=== PATIENT | male | born 1980 | race Caucasian/White ===

== ENCOUNTER 2024-01-22 09:27 | Emergency (ER) | payer OTHER, SELFPAY ==
[2024-01-22 09:29] VITALS: BP 162/93
--- NOTE | 2024-01-22 09:52 | ED.GENMED ---
History of Present Illness
General
Chief Complaint: Chest Pain
Source: patient
Exam Limitations: none
Time Seen by Provider: 01/22/24 09:32
Nursing documentation reviewed up to this point in time: agreed with
History of Present Illness
History of Present Illness:
43 y/o M
h/o HTN, HLD
low testosterone on supplement
here with chest pain that woke him from sleep at 230 am suddenly, sharp pressure, lasting 1 min and resolved
took aspirin
didn't know what to do
now he just feels a mild burning in left upper chest
pt asys the past few days he has had a mild burning discomfort there that was minimal
he was very anxious about it
more recently in the past month since being told his BP is elevated and cholesterol borderline, he has been very nervous about having heart attack
he exercises daily
yesterday lifted at the gym much higher weight than normal and didn't have any pain whlie doing that
he felt sore after but thinks that was muscle pain
no sob, pleuritic pain, recent surgery or long travel, rash, ewakness, arm or leg pain, nausea/vomiting
pt has no h/o GERD
pain not worse with eating
he has never seen cards
Past History
Past History
ED Past Medical History: HTN and Hypercholesterolemia
Social History
Tobacco: Former smoker
Alcohol: Former
Drug: Other (former cocaine, not for years)
Personal:
Living: with family
Employment: Employed
Review of Systems
Review of Systems
Allergies reviewed?: Yes
All Other Systems: Not applicable
Phy Exam
Physical Exam
Physical Exam:
GENERAL: Alert , anxiuos
EYE: pupils equal and reactive
NECK: Supple
ENT: o/p clr, mmm.
CARDIAC: Regular rate and rhythm .
LUNGS: Clear breath sounds bilaterally, no acute respiratory distress, no wheezes/rales/rhonchi
chest wall: slight tenderness L upper chest wall pec muscle
no rash
no bruising
ABDOMEN: Soft, without focal tenderness, no r/g, no cvat, normal bowel sounds
NEUROLOGICAL: Alert and oriented, no focal neuro deficits
SKIN: Warm and dry, skin intact.
MUSCULOSKELETAL: No edema, well perfused. neg herrera's sign
PSYCH: Normal and appropriate interaction.
Scores
Heart Score for Chest Pain Patients
STEMI patient?: No
History: Slightly or Non-Suspicious
ECG: Normal
Age: </= 45 years
Risk Factors: 1 or 2 Risk Factors
Troponin: </= Normal Limit
Heart Score for Chest Pain Patients: 1
Heart Score Risk: 2.5% MACE over next 6 weeks
Course
Orders/Labs/Results
Orders:
Orders
01/22/24 09:31
Electrocardiogram (*1) Urgent
Reason for Study: Chest Pain
EKG- Treatment ONCE
01/22/24 09:45
Complete Blood Count/With Diff Urgent
Comprehensive Metabolic Panel Urgent
Lipase Urgent
Troponin I Urgent
01/22/24 09:51
Cardiac Monitoring- Treatment ONCE
Acetaminophen [Tylenol] 650 mg PO NOW STA
Mag Hydrox/Al Hydrox/Simeth [Maalox] 30 ml Phenobarb/Hyoscy/Atropine/Scop [] 10 ml PO NOW
CR Chest - 2 Views Urgent
Comment:
Reason For Exam: chest pain
01/22/24 09:55
Mag Hydrox/Al Hydrox/Simeth [Maalox] 30 ml .ROUTE .STK-MED ONE
Phenobarb/Hyoscy/Atropine/Scop [] 10 ml .ROUTE .STK-MED ONE
Abnormal Lab Results
01/22/24
09:45
RBC 4.68 L 10^6/uL
(4.70-6.10)
MCH 31.8 H pg
(27.0-31.0)
Absolute Neuts (auto) 6.6 H 10^3/uL
(1.4-6.5)
Absolute Monos (auto) 1.1 H 10^3/uL
(0.1-0.6)
Lymphocytes % 18.9 L %
(20.5-51.1)
Monocytes % 10.8 H %
(1.7-9.3)
Glucose 102 H mg/dl
(70-99)
01/22/24 09:45
01/22/24 09:45
Vital Signs
Initial and Last Documented VS:
Initial Vital Signs
Temp Pulse Resp BP Pulse Ox
98.4 F 84 18 162/93 99
01/22/24 09:29 01/22/24 09:29 01/22/24 09:29 01/22/24 09:29 01/22/24 09:29
Last Documented Vital Signs
Temp Pulse Resp BP Pulse Ox
98.4 F 59 11 118/65 98
01/22/24 09:29 01/22/24 11:00 01/22/24 11:00 01/22/24 11:00 01/22/24 11:00
MDM/Problems Addressed
Differential Diagnosis Includes:
chest wall strain, anxiety, GERD, acs
MDM/Problems Addressed:
43 y/o M iwth h/o former drug/alcohol/smoking but no longer
h/ho htn, diet controlled cholesterol
has had some L chest burning pain for a fwe days but very mild
made him anxious
says that he has [place] really stressed out recently and has feeling like he will have a heart attack ever since being told about his bp and cholesterol
lifted alot of weight at the gym yesterdya, no exertional pain or SOB
woke up 2 am by chest pain thatwas severe nonradiating lasting 1 min then resovled
now has minmal burning symptom again he had had previously and thinks this is from his muscle from lifting
no pleuritic pain, no PE RF
anxious appearing but unremarkable exam
ekg nonischemic normal
trop drawn > 6 hour safter onset of sypmtoms
given his ability to tolerate exercise and very brief episode of pain without ongoing syptoms, and given low heart score, this is unlikely to be ACS
trop neg
d/c home
bp 116/65
*Critical Care Note
Total Time (30-74mins, 75-104mins- exclusive of procedures): Not Applicable
ED Attending Note
-
Portions of this chart may have been created with voice recognition software.� Occasional wrong word or��sound alike� substitutions may have occurred due to the inherent limitations of voice recognition software.
Discharge Plan
Departure
Patient Disposition: Home (Routine Discharge)
Date of Disposition: 01/22/24
Time of Disposition: 11:15
Patient with high blood pressure during this ER visit?: Yes
Condition: Fair
Covid-19: Not Applicable
Discharge Problem:
Chest pain
Instructions: Chest Pain PCP Follow Up
Prescriptions:
No Action
losartan 50 mg Tablet
50 mg PO DAILY
cholecalciferol (vitamin D3) [Vitamin D3] 50 mcg (2,000 unit) Capsule
50 mcg PO DAILY
omega 7-hmp-[id number]-fish oil [Fish Oil] 1,000 (120-180) mg Capsule
1 cap PO DAILY
Dim Men's Supplement
300 mg PO DAILY
Activity Restrictions/Additional Instructions:
YOU CHEST PAIN DOES NOT SEEM TO BE CAUSED BY YOUR HEART
PLEASE SEE YOUR DOCTOR THIS WEEK
WATCH YOUR DIET, AVOID SPICY FOODS, ACIDIC FOODS.
TRY TO AVOID HEAVY LIFTING FOR A FEW DAYS JUST IN CASE THIS IS MUSCULAR
YOUR DOCTOR MAY HAVE YOU SEE A CONTINUOUS ABSORPTION PROCESS OPERATOR JUST FOR COMPLETENESS SAKE.
RETURN FOR: WORSE PAIN, PERSISTENT PAIN, PAIN ASSOCIATED WITH ACTIVITY OR BREATHING, PASSING OUT OR ANY CONCERNS.
Interventions
Interventions:
*Risk Screen - Suicide Last Done: 01/22/24 09:29
*General Assessment Last Done: 01/22/24 09:29
*Neglect/Abuse Screening Last Done: 01/22/24 09:29
*ED COVID-19 Vaccine History Last Done: 01/22/24 10:08
ED- Cardiac Assessment Last Done: 01/22/24 10:08
Discharge Date and Time
Discharge Date/Time: 01/22/24 11:43
Print Language: MARTINIQUAIS
[2024-01-22] MEDS: TYLENOL 650 MG PO (09:58)
[2024-01-22] MEDS: MAALOX 40 PO (09:59)
[2024-01-22 10:00] LABS: % Basophils 0.7 % (0-2); % Eosinophils 2.2 % (0-6); % Immature Granulocytes 0.3 % (0-0.5); % Lymphocytes 18.9 % (20.5-51.1); % Monocytes 10.8 % (1.7-9.3); % Neutrophils 67.1 % (42.2-75.2); Absolute Basophils 0.1 10^3/uL (0-0.2); Absolute Eosinophils 0.2 10^3/uL (0-0.7); Absolute Lymphocytes 1.9 10^3/uL (1.2-3.4); Absolute Monocytes 1.1 10^3/uL (0.1-0.6); Absolute Neutrophils 6.6 10^3/uL (1.4-6.5); Hematocrit 42.6 % (39.0-52.0); Hemoglobin 14.9 g/dL (13.0-18.0); Mean Corpuscular Hgb 31.8 pg (27.0-31.0); Mean Platelet Volume 10.1 fL (7.4-10.4); Nucleated Red Blood Cells % 0 % (-); Platelet Count 301 10^3/uL (130-400); Red Blood Cell Count 4.68 10^6/uL (4.70-6.10); Red Cell Dist. Width 12.3 % (11.5-14.5); White Blood Cell Count 9.8 10^3/uL (4.8-10.8)
[2024-01-22 10:28] LABS: Blood Urea Nitrogen 15 mg/dl (9-20); Chloride 103 mmol/L (98-107); Glucose 102 mg/dl (70-99); Potassium 4.4 mmol/L (3.5-5.1); Sodium 141 mmol/L (135-145); Troponin I < 0.012 ng/ml; eGFR > 60.00
[2024-01-22 10:29] LABS: ALT (SGPT) 32 U/L (0-50); AST (SGOT) 36 U/L (17-59); Albumin 4.4 g/dl (3.5-5.0); Alkaline Phosphatase 58 U/L (38-126); Calcium 8.7 mg/dl (8.4-10.2); Carbon Dioxide 28 mmol/L (22-30); Total Bilirubin 0.5 mg/dl (0.2-1.3); Total Protein 6.7 g/dl (6.3-8.2)
[2024-01-22 10:37] VITALS: BP 136/79
[2024-01-22 11:00] VITALS: BP 118/65
[2024-01-22 11:00] LABS: Lipase 77 U/L (23-300)
--- NOTE | 2024-01-22 11:05 | PHANOTE ---
In addition to daily medications, patient receives testosterone injections [dosage formulation/dose unknown] every 6 days based on blood levels assessed every 6 weeks. The patients next testosterone injection is due today, 01/22/24.
== END 2024-01-22 11:43 | disposition home or self-care (01) ==
LOC: EMR 09:27
PROVIDERS: Physician Assistant; EMERGENCY PHYSICIAN Student in an Organized Health Care Education/Training Program
DX: R07.89 Other chest pain (principal); I10 Essential (primary) hypertension; Z73.3 Stress, not elsewhere classified; E78.00 Pure hypercholesterolemia, unspecified; F14.11 Cocaine abuse, in remission; Z87.891 Personal history of nicotine dependence; Z79.899 Other long term (current) drug therapy
CPT/HCPCS: 99283; 71046; 80053; 83690; 84484; 85025; 93005